=== PATIENT | male | born 1975 | race Hispanic/Latino ===

== ENCOUNTER 2020-07-31 | Emergency (ER) | payer SELFPAY ==
[2020-07-31] MEDS ORDERED: DOXYCYCL HYC100 MG PO (22:12)
[2020-07-31] MEDS ORDERED: PREDNISONE20 MG PO (22:13)
[2020-07-31] MEDS ORDERED: FLEXERIL5 MG PO (22:14)
[2020-07-31] MEDS ORDERED: DOXYCYCL HYC100 M4 PO (22:29)
== END 2020-07-31 23:58 | disposition home or self-care (01) | DRG 607 ==
DX: S20.461A Insect bite (nonvenomous) of right back wall of thorax, initial encounter (principal); L02.222 Furuncle of back [any part, except buttock and flank]; W57.XXXA Bitten or stung by nonvenomous insect and other nonvenomous arthropods, initial encounter; Z20.822 Contact with and (suspected) exposure to COVID-19